=== PATIENT | male | born 1945 | race Asian ===

== ENCOUNTER 2016-09-14 11:13 | Inpatient (IN) | payer OTHER ==
[~2016-09-14] VITALS: Ht 167.6 cm; Wt 115.6 kg
[2016-09-14 11:35] LABS: BASOPHILS % (AUTO) 0.5 % (0.0-2.0); EOSINOPHILS % (AUTO) 3.7 % (1.0-6.0); HEMATOCRIT 29.2 % (41-53); HEMOGLOBIN 9.4 g/dL (13.5-17.5); LYMPHOCYTES # (AUTO) 3.1 K/uL (1.0-4.8); LYMPHOCYTES % (AUTO) 28.5 % (22.0-44.0); MEAN CORPUSCULAR HEMOGLOBIN 28.5 pg (26.0-34.0); MEAN CORPUSCULAR HGB CONC 32.3 G/dL (31.0-37.0); MEAN CORPUSCULAR VOLUME 88 fL (80-100); MONOCYTES # (AUTO) 0.8 K/uL (0.1-1.0); MONOCYTES % (AUTO) 7.3 % (2.0-9.0); NEUTROPHILS # (AUTO) 6.5 K/uL (1.8-7.7); PLATELET COUNT (AUTO) 164 K/uL (150-450); RED BLOOD CELL COUNT(AUTO) 3.31 MIL/uL (4.50-5.90); RED CELL DISTRIBUTION WIDTH 16.7 % (11.5-14.5); WHITE BLOOD COUNT (AUTO) 10.8 K/uL (4.5-11.0)
[2016-09-14] MEDS ORDERED: ACLI400A2 IH (11:36)
[2016-09-14] MEDS ORDERED: FINA5TAB41 PO (11:36)
[2016-09-14] MEDS ORDERED: [UNRECOGNIZED DRUG - CODE] NASAL (11:36)
[2016-09-14] MEDS ORDERED: DOXA2TAB PO (11:36)
[2016-09-14] MEDS ORDERED: HYDR25TA84 PO (11:36)
[2016-09-14] MEDS ORDERED: GLUC100019 PO (11:36)
[2016-09-14] MEDS ORDERED: FLUT16H NASAL (11:36)
[2016-09-14] MEDS ORDERED: TRAM50TA4 PO (11:36)
[2016-09-14] MEDS ORDERED: DILT90 PO (11:36)
[2016-09-14] MEDS ORDERED: COLC0.6T69 PO (11:36)
[2016-09-14] MEDS ORDERED: LOVA20 PO (11:36)
[2016-09-14] MEDS ORDERED: LACT30L PO (11:36)
[2016-09-14] MEDS ORDERED: ALLO100T PO (11:36)
[2016-09-14 11:43] LABS: CALCIUM, TOTAL 8.7 mg/dL (8.8-10.5); CREATININE 6.17 mg/dL (0.60-1.30); POTASSIUM 4.2 mmol/L (3.5-5.1)
[2016-09-14 11:46] LABS: PROTHROMBIN TIME 10.7 SEC (9.4-11.6)
[2016-09-14 11:49] LABS: ALBUMIN 3.3 g/dL (3.4-5.0); BILIRUBIN,TOTAL 0.3 mg/dL (0.1-1.0); TOTAL PROTEIN, SERUM 6.9 g/dL (6.4-8.2)
[2016-09-14 13:03] LABS: ERYTHROCYTE SEDIMENTATION RATE 43 MM/HR (0-15)
[2016-09-14] MEDS ORDERED: ACETAMINOPHEN 325 MG TABLET PO PRN (14:00)
[2016-09-14] MEDS ORDERED: 0.9% SODIUM CHLORIDE 10 ML SYRINGE IVP PRN (14:00)
[2016-09-14] MEDS ORDERED: ONDANSETRON HCL 4 MG/2 ML VIAL IVP PRN (14:00)
[2016-09-14 16:00] VITALS: BP 140/78
[2016-09-14] MEDS ORDERED: LACTULOSE 20 GM/30 ML SOLUTION UDCUP PO PRN (17:15)
[2016-09-14] MEDS ORDERED: TraMADol HCL 50 MG TABLET PO PRN (17:15)
[2016-09-14] MEDS ORDERED: SEVELAMER CARBONATE 800 MG TABLET PO SCH ×3 (18:00)
[2016-09-14] MEDS: LOVASTATIN 20 MG TABLET PO SCH (18:25)
[2016-09-14] MEDS: SODIUM CHLORIDE 0.45% 1,000 ML IV SCH (18:26)
[2016-09-14] MEDS: ALLOPURINOL 100 MG TABLET PO SCH (18:33)
[2016-09-14 19:40] VITALS: BP 148/71
[2016-09-14] MEDS: HydrALAZINE HCL 25 MG TABLET PO SCH (20:07)
[2016-09-14 23:56] VITALS: BP 120/60
[2016-09-15 04:27] VITALS: BP 120/70
[2016-09-15 06:24] LABS: BASOPHILS # (AUTO) 0.05 K/uL (0.00-0.20); BASOPHILS % (AUTO) 0.6 % (0.0-2.0); EOSINOPHILS # (AUTO) 0.48 K/uL (0.00-0.70); EOSINOPHILS % (AUTO) 5.58 % (1.0-6.0); HEMATOCRIT 25.9 % (41-53); HEMOGLOBIN 8.6 g/dL (13.5-17.5); LYMPHOCYTES % (AUTO) 23.9 % (22.0-44.0); MEAN CORPUSCULAR HGB CONC 33.1 G/dL (31.0-37.0); MEAN CORPUSCULAR VOLUME 88 fL (80-100); MONOCYTES # (AUTO) 0.7 K/uL (0.1-1.0); MONOCYTES % (AUTO) 7.6 % (2.0-9.0); NEUTROPHILS # (AUTO) 5.3 K/uL (1.8-7.7); NEUTROPHILS % (AUTO) 62.4 % (40.0-70.0); PLATELET COUNT (AUTO) 148 K/uL (150-450); RED BLOOD CELL COUNT(AUTO) 2.95 MIL/uL (4.50-5.90); RED CELL DISTRIBUTION WIDTH 17.3 % (11.5-14.5); WHITE BLOOD COUNT (AUTO) 8.6 K/uL (4.5-11.0)
[2016-09-15 07:03] LABS: RBC MORPHOLOGY COMMENT ABNORMAL RBC MORPH
[2016-09-15 07:06] VITALS: BP 120/59
[2016-09-15 07:06] LABS: ALBUMIN 3.1 g/dL (3.4-5.0); BILIRUBIN,TOTAL 0.4 mg/dL (0.1-1.0); CHOL/HDL RATIO 1.9 (4.2-7.3); CREATININE 6.21 mg/dL (0.60-1.30); MAGNESIUM 1.8 mg/dL (1.80-2.40); PHOSPHORUS 5.7 mg/dL (2.5-4.9); POTASSIUM 4.5 mmol/L (3.5-5.1); TOTAL PROTEIN, SERUM 6.3 g/dL (6.4-8.2)
[2016-09-15] MEDS ORDERED: FLUTICASONE PROPIONATE 50 MCG/SPRAY 16 GM NASAL SPRAY NASAL SCH (09:00)
[2016-09-15] MEDS ORDERED: COLCHICINE 0.6 MG TABLET PO SCH (09:00)
[2016-09-15] MEDS: LOVASTATIN 20 MG TABLET PO SCH ×2 (09:00→20:38)
[2016-09-15] MEDS: HydrALAZINE HCL 25 MG TABLET PO SCH ×2 (09:35→20:39)
[2016-09-15] MEDS: DOXAZOSIN MESYLATE 2 MG TABLET PO SCH (09:35)
[2016-09-15] MEDS: ALLOPURINOL 100 MG TABLET PO SCH (09:35)
[2016-09-15] MEDS: FINASTERIDE 5 MG TABLET PO SCH (09:35)
[2016-09-15 10:12] LABS: APPEARANCE,URINE CLEAR (CLEAR); GLUCOSE, URINE (UA) NEGATIVE (NEGATIVE); KETONES,URINE NEGATIVE (NEGATIVE); LEUKOCYTE ESTERASE ,URINE NEGATIVE (NEGATIVE); OCCULT BLOOD,URINE NEGATIVE (NEGATIVE); PH,URINE 5.5 (5.0-8.0); PROTEIN,URINE SEE CONFIRM (NEGATIVE)
[2016-09-15 10:13] LABS: ADD UA MICROSCOPIC NO
[2016-09-15 10:20] LABS: SULFOSALICYLIC ACID,URINE 1+ (Negative)
[2016-09-15 10:22] LABS: RBC,URINE None Seen /HPF (0-2); SQUAMOUS EPITHELIAL CELL,UR Few /LPF (None Seen); WBC,URINE None Seen /HPF (0-5)
[2016-09-15 10:59] VITALS: BP 115/75
[2016-09-15] MEDS: SODIUM CHLORIDE 0.45% 1,000 ML IV SCH (14:58)
[2016-09-15 15:03] VITALS: BP 116/64
[2016-09-15 19:42] VITALS: BP 125/62
[2016-09-15] MEDS: FLUTICASONE PROPIONATE 50 MCG/SPRAY 16 GM NASAL SPRAY NASAL SCH (20:38)
[2016-09-15 23:31] VITALS: BP 123/61
[2016-09-16 04:19] VITALS: BP 138/81
[2016-09-16 07:41] VITALS: BP 150/87
[2016-09-16 08:40] LABS: CALCIUM, TOTAL 8.1 mg/dL (8.8-10.5); CREATININE 5.85 mg/dL (0.60-1.30); POTASSIUM 4.4 mmol/L (3.5-5.1)
[2016-09-16] MEDS: DILTIAZEM HCL CD 180 MG ER CAPSULE PO SCH (08:43)
[2016-09-16 08:44] LABS: MAGNESIUM 1.8 mg/dL (1.80-2.40); PHOSPHORUS 5.2 mg/dL (2.5-4.9)
[2016-09-16] MEDS: DOXAZOSIN MESYLATE 2 MG TABLET PO SCH (08:44)
[2016-09-16] MEDS: ALLOPURINOL 100 MG TABLET PO SCH (08:44)
[2016-09-16] MEDS: FINASTERIDE 5 MG TABLET PO SCH (08:44)
[2016-09-16] MEDS: FLUTICASONE PROPIONATE 50 MCG/SPRAY 16 GM NASAL SPRAY NASAL SCH ×2 (08:44→20:22)
[2016-09-16] MEDS: HydrALAZINE HCL 25 MG TABLET PO SCH ×2 (08:44→20:22)
[2016-09-16] MEDS ORDERED: COLCHICINE 0.6 MG TABLET PO PRN (09:00)
[2016-09-16] MEDS: SODIUM CHLORIDE 0.45% 1,000 ML IV SCH (10:47)
[2016-09-16 10:59] VITALS: BP 142/89
[2016-09-16 14:55] VITALS: BP 127/76
[2016-09-16 19:44] VITALS: BP 119/64
[2016-09-16] MEDS: LOVASTATIN 20 MG TABLET PO SCH (20:22)
[2016-09-16 23:14] VITALS: BP 118/74
[2016-09-17 04:27] VITALS: BP 119/63
[2016-09-17] MEDS: SODIUM CHLORIDE 0.45% 1,000 ML IV SCH (06:13)
[2016-09-17 07:55] VITALS: BP 151/99
[2016-09-17] MEDS: DILTIAZEM HCL CD 180 MG ER CAPSULE PO SCH (08:14)
[2016-09-17] MEDS: DOXAZOSIN MESYLATE 2 MG TABLET PO SCH (08:14)
[2016-09-17] MEDS: FLUTICASONE PROPIONATE 50 MCG/SPRAY 16 GM NASAL SPRAY NASAL SCH (08:14)
[2016-09-17] MEDS: HydrALAZINE HCL 25 MG TABLET PO SCH (08:14)
[2016-09-17] MEDS: ALLOPURINOL 100 MG TABLET PO SCH (08:15)
[2016-09-17] MEDS: FINASTERIDE 5 MG TABLET PO SCH (08:15)
[2016-09-17 08:51] LABS: CALCIUM, TOTAL 8.1 mg/dL (8.8-10.5); CREATININE 5.83 mg/dL (0.60-1.30); MAGNESIUM 1.8 mg/dL (1.80-2.40); PHOSPHORUS 5.2 mg/dL (2.5-4.9); POTASSIUM 4.3 mmol/L (3.5-5.1)
[2016-09-17 11:28] VITALS: BP 151/82
== END 2016-09-17 15:45 | disposition home or self-care (01) | DRG 682 ==
LOC: EMS 11:14 → 5N 15:31 → 5S 09-16 21:08
PROVIDERS: ADMIT Family Medicine; ATTEND Family Medicine
PROC: 5A09457 Assistance with Respiratory Ventilation, 24-96 Consecutive Hours, Continuous Positive Airway Pressure (ICD-10-PCS; principal; 2016-09-15)
DX: I12.0 Hypertensive chronic kidney disease with stage 5 chronic kidney disease or end stage renal disease (principal); N18.6 End stage renal disease; N17.9 Acute kidney failure, unspecified; E11.22 Type 2 diabetes mellitus with diabetic chronic kidney disease; D64.9 Anemia, unspecified; E78.5 Hyperlipidemia, unspecified; M10.00 Idiopathic gout, unspecified site; E78.00 Pure hypercholesterolemia, unspecified; R91.8 Other nonspecific abnormal finding of lung field; R20.0 Anesthesia of skin; M19.90 Unspecified osteoarthritis, unspecified site; Z90.49 Acquired absence of other specified parts of digestive tract; Z87.442 Personal history of urinary calculi; Z79.899 Other long term (current) drug therapy
CPT/HCPCS: 70450; 71250; 81050; 82575; 83036; 83735; 84100; 84156; 85651; 93005; 94660; 97161; 97165; 99285

== ENCOUNTER → 2017-01-12 | Outpatient (CLI) | payer OTHER ==
[~2017-01-12] MED LIST: ACLI400A2 IH; ALLO100T PO; COLC0.6T69 PO; DILT90 PO; DOXA2TAB PO; FINA5TAB41 PO; FLUT16H NASAL; GLUC100019 PO; HYDR25TA84 PO; LACT30L PO; LOVA20 PO; TRAM50TA4 PO; [UNRECOGNIZED DRUG - CODE] NASAL
== END | disposition home or self-care (01) ==
LOC: RADPV 09:30
PROVIDERS: ATTEND Internal Medicine Nephrology
DX: Z01.89 Encounter for other specified special examinations (principal); J98.09 Other diseases of bronchus, not elsewhere classified; I51.7 Cardiomegaly; I70.0 Atherosclerosis of aorta; N18.5 Chronic kidney disease, stage 5
CPT/HCPCS: 71020

== ENCOUNTER → 2017-02-07 | Outpatient (CLI) | payer OTHER ==
[~2017-02-07] MED LIST changes: +COLC0.6T67 PO; -COLC0.6T69 PO
== END | disposition home or self-care (01) ==
LOC: RADPV 09:23
PROVIDERS: ATTEND Internal Medicine Cardiovascular Disease
DX: I35.8 Other nonrheumatic aortic valve disorders (principal)
CPT/HCPCS: 93306